=== PATIENT | male | born 1985 | race Caucasian/White ===

== ENCOUNTER 2024-10-06 10:29 | Emergency (ER) | payer OTHER ==
[~2024-10-06] VITALS: Ht 177.8 cm; Wt 113.0 kg
[2024-10-06 10:37] VITALS: O2SAT 100
[2024-10-06] MEDS: TETANUS, DIPHTHERIA, PERTUSSIS VAC/PF 0.5ML (>10YR OLD) IM ONE (11:15)
[2024-10-06] MEDS: LIDOCAINE HCL/PF 1% 10 MG/ML 5ML VIAL INFIL ONE (11:15)
[2024-10-06] MEDS ORDERED: CEPH500C2 MT (11:19)
[2024-10-06 12:06] VITALS: BP 128/65; PULSE 67; RESP 16; TEMP 36.9; O2SAT 98
== END 2024-10-06 12:10 | disposition home or self-care (01) ==
LOC: ER 10:29
DX: S61.412A Laceration without foreign body of left hand, initial encounter (principal); X58.XXXA Exposure to other specified factors, initial encounter; Y93.89 Activity, other specified; Y92.89 Other specified places as the place of occurrence of the external cause; Y99.8 Other external cause status
CPT/HCPCS: 73130; 90715; 12002; 90471; 99283; J2003; Z7610 ×2